=== PATIENT | female | born 1975 | race Caucasian/White ===

== ENCOUNTER 2022-03-26 08:05 | Outpatient (CLI) | payer OTHER, SELFPAY ==
--- NOTE | 2022-03-26 08:15 | CRLHL7_ITS ---
For Patients: As a result of the Century Cures Act, medical imaging exams and procedure reports are released immediately into your electronic medical record. You may view this report before your referring provider. If you have questions, please contact your health care provider. BILATERAL MAMMOGRAM WITH COMPUTER-AIDED DETECTION AND TOMOSYNTHESIS TECHNIQUE: CC and MLO views were obtained. These mammographic images have been obtained using full-field digital technique. These mammographic images were interpreted with the benefit of computer-aided detection. Breast Tomosynthesis was used in this interpretation. COMPARISON FILM: 10/20/2018. FINDINGS: The breasts are extremely dense, which lowers the sensitivity of mammography IMPRESSION: There is no radiographic evidence for malignancy. ASSESSMENT: BI-RADS Category 1: Negative RECOMMENDATION: Routine screening mammogram in 1 year. A lay language report of this examination will be provided to the patient. Jayson Ryan M.D. Diagnostic Radiologist [email or web address] [email or web address]/[email or web address]/Dictated by: Jayson Ryan MD @ 03/26/2022 12:02:00 PM (Electronically Signed)
== END 2022-03-26 08:06 | disposition home or self-care (01) ==
LOC: MAMMO 08:07
PROVIDERS: PCP Family Medicine; Visit Provider Family Medicine
DX: Z12.31 Encounter for screening mammogram for malignant neoplasm of breast (principal)
CPT/HCPCS: 77063; 77067

== ENCOUNTER 2022-09-02 06:37 | Emergency (ER) | payer OTHER, SELFPAY ==
[2022-09-02 06:42] VITALS: BP 138/90; PULSE 71; RESP 16; TEMP 37.1; O2SAT 98
--- NOTE | 2022-09-02 06:44 | ED.NURSE ---
pt to room 4, nose clamp and ice applied, MD updated.
--- NOTE | 2022-09-02 07:10 | ED_ITS ---
HPI - General Adult General Chief complaint: Epistaxis/Nosebleed Stated complaint: nosebleed Time Seen by Provider: 09/02/22 06:39 Source: patient Mode of arrival: ambulatory Limitations: no limitations History of Present Illness HPI narrative: Generally healthy 47-year-old female coming in today complaining of a nosebleed that is been going on for about an hour. She has pinched her nose for 5 minutes and then 10 minutes at a time when he continues to bleed. She denies any lightheadedness, headache, blurry vision or chest pain. She is not short of breath. She denies nosebleeds that have lasted this long in the past. She is not on any medications. Nosebleed started this morning after she blew her nose. Related Data Home Medications Medication Instructions Recorded Confirmed No Known Home Medications 09/02/22 09/02/22 Allergies Allergy/AdvReac Type Severity Reaction Status Date / Time No Known Drug Allergies Allergy Verified 09/02/22 06:44 Review of Systems Status of ROS: Reports: 10 or more systems reviewed and unremarkable except as noted in History and below [facility] Medical History Hyperlipidemia ARNALDO (obstructive sleep apnea) Pneumonia Surgical History No significant past surgical history Social History Smoking Status: Unknown if ever smoked How often do you have a drink containing alcohol: never AUDIT-C Alcohol total score: 0 Exam Narrative: Exam Narrative: Well-nourished well-developed patient in no acute distress. Alert and oriented. Answers questions appropriately. Mood and affect are appropriate. Thoughts are goal oriented and rational. No tangential or magical thinking noted. Patient speaks in full sentences without needing to catch her breath. HEENT: Normocephalic atraumatic. Pupils are equally round reactive to light. Extraocular muscles are intact. Conjunctivae are moist without any icterus noted. Moist mucous membranes. Posterior pharynx is normal. Patient has a nose bleed of the right nares. On initial examination it is unclear where the bleeding is coming from as the nasal cavity is filled with blood. Skin: Well perfused without any obvious rashes. Const: Vital Signs, click to edit/add: Vital Signs - 24 hr 09/02/22 06:42 Temperature 98.7 F Pulse Rate [Left P ulse Oximeter] 71 Respiratory Rate 16 Blood Pressure [Ri ght Upper Arm] 138/90 H Pulse Oximetry 98 Oxygen Delivery Me thod Room Air Course Course Hospital Course: Patient's nose was clamped for 10 minutes. This did not produce any bleeding down the back of the throat. Re-examination was done. The left nares is appears normal. The right nares has a blood clot in it but it is no longer actively bleeding. I did discuss with the patient how she wanted to proceed. We discussed clearing out the blood clot and inserting a new rhino rocket verses not manipulating the nose any further as it is not actively bleeding. At this time patient chose not to have a rhino rocket placed her any further intervention. She will take the nose clamp home in the event that the nose starts to bleed again and we discussed clamping for 10 minutes. We discussed reasons to return to the ER. Patient was agreeable had no other questions. Vital Signs Vital signs: Initial Vital Signs Temperature 98.7 F 09/02/22 06:42 Temperature Source Temporal Artery Scan 09/02/22 06:42 Pulse Rate 71 09/02/22 06:42 Respiratory Rate 16 09/02/22 06:42 Blood Pressure 138/90 H 09/02/22 06:42 Blood Pressure Mean 106 09/02/22 06:42 Blood Pressure Position Sitting 09/02/22 06:42 Pulse Oximetry 98 09/02/22 06:42 Oxygen Delivery Method 09/02/22 06:42 Vital Signs Temperature 98.7 F 09/02/22 06:42 Pulse Rate 71 09/02/22 06:42 Respiratory Rate 16 09/02/22 06:42 Blood Pressure 138/90 H 09/02/22 06:42 Pulse Oximetry 98 09/02/22 06:42 Oxygen Delivery Method 09/02/22 06:42 Temperature 98.7 F 09/02/22 06:42 Pulse Rate 71 09/02/22 06:42 Respiratory Rate 16 09/02/22 06:42 Blood Pressure 138/90 H 09/02/22 06:42 Pulse Oximetry 98 09/02/22 06:42 Oxygen Delivery Method 09/02/22 06:42 Medical Decision Making MDM Narrative Medical decision making narrative: Epistaxis controlled with pressure. We discussed continued management at home versus placing a rhino rocket. Patient does not want to have a rhino rocket placed at this time. Discharge Plan Discharge Clinical Impression: Epistaxis Patient Disposition: Home, Self-Care Condition: Improved Additional Instructions: Place clamp at the same location as you had in the ER if the nose starts to bleed again leave on for 10 minutes before taking it off. If you cannot get the nose to stop bleeding return to the ER. Do not blow your nose for the next couple of days. Prescriptions: No Action No Known Home Medications Follow Up/Referrals: Mamadou Causey MD [Primary Care Provider] - Stand Alone Forms: NP [employer] Info Instructions
== END 2022-09-02 07:21 | disposition home or self-care (01) ==
LOC: ED 07:17
PROVIDERS: Emergency Provider Family Medicine; PCP Family Medicine
DX: R04.0 Epistaxis (principal)
CPT/HCPCS: 99283; 99284